=== PATIENT | male | born 1940 | race African-American/Black ===

== ENCOUNTER 2019-03-27 12:04 | Inpatient (IN) | payer OTHER, MEDICAID ==
[~2019-03-27] VITALS: Ht 170.2 cm; Wt 59.0 kg
[2019-03-27 12:04] VITALS: BP_SYST 121
--- NOTE | 2019-03-27 12:04 | NUR ---
Placed in room 02. Placed on monitoring manager, blood pressure machine and pulse oximeter. To gown for exam. Side rails up.
--- NOTE | 2019-03-27 12:08 | NUR ---
Patient brought in by ambulance to the ED c/o fevers and cough for 2 days. Denied any chest pain or shortness of breath. Denied chills, nausea or vomiting. Patient is alert and oriented x2, afebrile, respirations even and unlabored, speaking in full sentences. VSS, pain level 0/10. Informed of approximate wait time. INstructed to notify ED staff for any changes in condition or worsening of symptoms. Patient verbalized understanding.
[2019-03-27] MEDS ORDERED: NACL 0.9% 3,000 ML IV ONE (12:15)
[2019-03-27] MEDS ORDERED: cefTRIAXone 1 GM IVPB PREMIX 50 ML IV ONE (12:15)
--- NOTE | 2019-03-27 12:20 | NUR ---
#18 gauge angiocath placed to R forearm. Use of asceptic technique. Opsite placed over site. Blood return noted. Blood for lab drawn from site. Flushed with 10 cc of normal saline. No evidence of infiltration noted. Patient tolerated well.
--- NOTE | 2019-03-27 12:39 | NUR ---
X-ray tech at bedside as ordered by Dr. Sheth. Patient tolerated the procedure well.
[2019-03-27 12:42] LABS: BASOPHILS % (AUTO) 0.1 % (0.0-2.0); EOSINOPHILS % (AUTO) 0.1 % (0.0-4.0); HEMATOCRIT 28.2 % (36-54); HEMOGLOBIN 9.3 g/dL (14.0-18.0); LYMPHOCYTES # (AUTO) 0.7 K/uL (1.0-5.5); LYMPHOCYTES % (AUTO) 4.3 % (20.5-51.5); MEAN CORPUSCULAR HEMOGLOBIN 26 pg (27-31); MEAN CORPUSCULAR HGB CONC 33 % (32-36); MEAN CORPUSCULAR VOLUME 78 fL (79.0-98.0); MONOCYTES # (AUTO) 1.6 K/uL (0.0-1.0); MONOCYTES % (AUTO) 9.3 % (1.7-9.3); NEUTROPHILS # (AUTO) 14.6 K/uL (1.8-7.7); NEUTROPHILS % (AUTO) 86.2 % (40.0-70.0); PLATELET COUNT (AUTO) 445 K/uL (130-430); RED BLOOD CELL COUNT(AUTO) 3.61 MIL/uL (4.2-6.2); RED CELL DISTRIBUTION WIDTH 18.9 % (9.0-15.0); WHITE BLOOD COUNT (AUTO) 16.9 K/uL (4.8-10.8)
--- NOTE | 2019-03-27 12:42 | NUR ---
#16 FR Wells catheter with use of sterile technique. Immediate return of 10 cc pink, cloudy urine noted. Bedside drainage bag placed below level of bladder. Urine sample collected and sent to lab. Pt tolerated procedure well. Patient arrived with wells in place, changed due to standard of practice prior to admission. Patient unable to toilet self.
[2019-03-27 13:02] LABS: ANION GAP 9 (5-15); CALCIUM 9.8 mg/dL (8.4-11.0); CHLORIDE 99 mmol/L (98-107); CREATININE 0.67 mg/dL (0.55-1.30); GLUCOSE 96 mg/dL (70-99); INR 1.2 (0.80-1.20); POTASSIUM 3.9 mmol/L (3.5-5.1); SODIUM SERUM 135 mmol/L (136-145); UREA NITROGEN, BLOOD 18 mg/dL (8-21)
[2019-03-27 13:08] LABS: ALANINE AMINOTRANSFERASE 26 U/L (12-78); ALBUMIN 2.3 g/dL (3.4-4.8); ASPARTATE AMINOTRANSFERASE 139 U/L (10-37); TOTAL BILIRUBIN 0.3 mg/dL (0.0-1.0)
[2019-03-27] MEDS ORDERED: VANCOMYCIN HCL 1,000 MG in D5W 250 ML IV ONE (13:30)
[2019-03-27] MEDS ORDERED: PIPERACILLIN/TAZO 3.38 GM in D5W 50 ML IV ONE (13:30)
[2019-03-27] MEDS ORDERED: PIPERACILLIN/TAZOBACTAM 3.375 GM/VIAL (ZOSYN) IV ONE (13:49)
[2019-03-27] MEDS ORDERED: VANCOMYCIN HCL 1000 MG/VIAL IV ONE (13:50)
[2019-03-27] MEDS: NACL 0.9% 1,000 ML IV SCH (14:13)
[2019-03-27] MEDS ORDERED: ALBUTEROL SULFATE 0.083% 2.5 MG/3 ML VIAL.NEB INH PRN ×2 (14:15→23:15)
--- NOTE | 2019-03-27 14:15 | NUR ---
Received admitting orders. Called for a bed.
[2019-03-27] MEDS ORDERED: DOCU100T10 GT (14:32)
[2019-03-27] MEDS ORDERED: MULT-27 GT (14:32)
[2019-03-27] MEDS ORDERED: BISA5TAB10 RC (14:32)
[2019-03-27] MEDS ORDERED: ALBU2.5V7 INH (14:32)
[2019-03-27] MEDS ORDERED: GUAI5SYR GT (14:32)
[2019-03-27] MEDS ORDERED: APIX5TAB GT (14:32)
[2019-03-27] MEDS ORDERED: SENN8.6T19 GT (14:32)
[2019-03-27] MEDS ORDERED: PRO40 GT (14:32)
[2019-03-27] MEDS ORDERED: MOM GT (14:32)
[2019-03-27] MEDS ORDERED: HYDR-4272 GT (14:32)
[2019-03-27] MEDS ORDERED: ACET325T53 GT (14:32)
[2019-03-27] MEDS ORDERED: NA P133E41 RC (14:32)
--- NOTE | 2019-03-27 14:33 | NUR ---
Medication reconciliation completed with information provided by medication list from facility. Any prior medication reconciliation on file was reviewed and corrected.
--- NOTE | 2019-03-27 14:44 | NUR ---
Patient will be admitted to care of Dr. Salinas. Admitted to MS unit. Will go to room 111A. Belongings list completed. Complete and up to date summary report printed. SBAR report given to Sherry over the phone with opportunity for questions.
[2019-03-27] MEDS ORDERED: ONDANSETRON HCL 4 MG/2 ML VIAL IVP PRN (14:45)
--- NOTE | 2019-03-27 14:50 | NUR ---
ADMIT NOTE Received pt from ER to the floor with a diagnosis of PNA. Admission process initiated. patient oriented to pain management, safety and call light-teach back done. NEED FOLLOW UP ON TEACH BACK
[2019-03-27 15:05] VITALS: BP_SYST 151
--- NOTE | 2019-03-27 15:08 | NUR ---
[phone]
--- NOTE | 2019-03-27 15:11 | NUR ---
CONSULT PULMONOLOGY PNEUMONIA DR MCINTYRE [phone] S/W [facility] OFFICE
[2019-03-27] MEDS: AZITHROMYCIN 500 MG in NS 250 ML IV SCH (15:45)
[2019-03-27 16:00] VITALS: BP_SYST 151
[2019-03-27 16:08] VITALS: BP_SYST 151
[2019-03-27] MEDS: ACETAMINOPHEN 500 MG TABLET GT PRN (16:45)
[2019-03-27 18:20] VITALS: BP_SYST 151
--- NOTE | 2019-03-27 18:45 | NUR ---
Patient was transfered from ER. Patient is stable, does not answer you questions when you speak to him. His was at bedside and she answered all admin questions. Redd ALLEN
[2019-03-27 20:00] VITALS: BP_SYST 131
--- NOTE | 2019-03-27 20:00 | NUR ---
Complete assessment done. Pt. awake, oriented x 3, quiet and non-cooperative. Keep HOB UP @ 55-65 Degrees Angle and turned/repositioned for comfort.
[2019-03-27] MEDS: PIPERACILLIN/TAZO 4.5GM/DEX-IS 100 ML IV SCH (21:42)
--- NOTE | 2019-03-27 22:00 | NUR ---
Due meds. given @ around this time. Pt. given health teaching on the use and benefits of the antibiotic given.
[2019-03-27] MEDS ORDERED: guaiFENesin/DEXTROMETHORPHAN 118 ML GT PRN (23:15)
[2019-03-27] MEDS ORDERED: ACETAMINOPHEN 325 MG TABLET GT PRN (23:15)
[2019-03-27] MEDS ORDERED: MILK OF MAGNESIA 30 ML UDC GT PRN (23:15)
[2019-03-27] MEDS ORDERED: BISACODYL 5 MG TABLET.DR (DULCOLAX) GT PRN (23:15)
[2019-03-27] MEDS: PANTOPRAZOLE SODIUM 40 MG TAB GT SCH (23:15)
[2019-03-27] MEDS ORDERED: HYDROcodone/ACETAMIN 5-325 MG TAB (NORCO/ VICODIN) GT PRN (23:15)
[2019-03-27] MEDS ORDERED: SODIUM PHOSPHATE,MONO-DIBASIC 133 ML ENEMA RC PRN (23:15)
--- NOTE | 2019-03-27 23:30 | NUR ---
Pt. refused Protonix 40 mg. for G -tube and was fighting/combative to the assigned RN. Pt. non-compliant and refused to be touched and did not want his G-tube to be touched.
[2019-03-27] MEDS: IPRATROPIUM/ALBUTEROL SULFATE 3 ML AMPUL.NEB (DUONEB) INH SCH (23:39)
[2019-03-28] VITALS: BP_SYST 128
--- NOTE | 2019-03-28 00:30 | NUR ---
Pt. is sleeping and HOB UP @ 55-65 degrees angle. Pt. in Room Air. No s/s of RR distress.
[2019-03-28] MEDS: NACL 0.9% 1,000 ML IV SCH ×4 (02:56→21:40)
--- NOTE | 2019-03-28 04:00 | NUR ---
Pt. quiet and sleeping. Denies pain. Noted to have occasional cough @ times. Will follow-up or check cough medication order.
[2019-03-28] MEDS: PANTOPRAZOLE SODIUM 40 MG TAB GT SCH (06:43)
[2019-03-28] MEDS: PIPERACILLIN/TAZO 4.5GM/DEX-IS 100 ML IV SCH ×3 (06:43→21:41)
--- NOTE | 2019-03-28 06:43 | NUR ---
Scheduled med. given Zosyn IV antibiotic. Protonix 40 mg. will be given. Pt. totally awake, provided proper health teachings on the use of Protonix 40 mg. to be given through the G-tube. Continually reenforce pt. so that pt. will not be refusing and will not be combative to the Nurse while the assigned RN will administer it to the G-tube. Pt. able to verbalized understandingas he is fully awakened and said okay and finally cooperated @ this time for Protonix to be given through the G-tube. Pt. able to cooperate and med. was able to be administered before 0700 Am. Pt. verbalized understanding that his med. protects the stomach/GI and prevents bleeding or prevents ulceration.
[2019-03-28] MEDS: IPRATROPIUM/ALBUTEROL SULFATE 3 ML AMPUL.NEB (DUONEB) INH SCH ×3 (07:11→20:10)
--- NOTE | 2019-03-28 07:15 | NUR ---
Gave report to the next Day assigned RN.
[2019-03-28 07:28] LABS: ALANINE AMINOTRANSFERASE 24 U/L (12-78); ALBUMIN 1.9 g/dL (3.4-4.8); ANION GAP 7 (5-15); ASPARTATE AMINOTRANSFERASE 120 U/L (10-37); CALCIUM 9.6 mg/dL (8.4-11.0); CHLORIDE 98 mmol/L (98-107); CREATININE 0.69 mg/dL (0.55-1.30); GLUCOSE 67 mg/dL (70-99); SODIUM SERUM 129 mmol/L (136-145); UREA NITROGEN, BLOOD 15 mg/dL (8-21)
--- NOTE | 2019-03-28 07:30 | NUR ---
Opening note patient resting in bed at this time, A/ox3, nonverbal at this time, able to follow commands and nods to answer question. IV patent, intact, and infusing fluids as ordered. No adverse side effects noted. no infiltration noted. Moy catheter in place, draining yellow urine. on safety and aspiration precautions, HOB kept elevated, bed alarm on, 3 side rails up, call light within reach. patient in stable condition. Will continue to monitor.
[2019-03-28 07:37] LABS: BASOPHILS # (AUTO) 0.1 K/uL (0.0-0.2); BASOPHILS % (AUTO) 0.3 % (0.0-2.0); EOSINOPHILS % (AUTO) 0.1 % (0.0-4.0); HEMATOCRIT 24.1 % (36-54); HEMOGLOBIN 7.9 g/dL (14.0-18.0); LYMPHOCYTES # (AUTO) 0.6 K/uL (1.0-5.5); LYMPHOCYTES % (AUTO) 3.7 % (20.5-51.5); MEAN CORPUSCULAR HEMOGLOBIN 26 pg (27-31); MEAN CORPUSCULAR HGB CONC 33 % (32-36); MEAN CORPUSCULAR VOLUME 78 fL (79.0-98.0); MONOCYTES # (AUTO) 1.5 K/uL (0.0-1.0); MONOCYTES % (AUTO) 8.8 % (1.7-9.3); NEUTROPHILS # (AUTO) 14.6 K/uL (1.8-7.7); NEUTROPHILS % (AUTO) 87.1 % (40.0-70.0); PLATELET COUNT (AUTO) 405 K/uL (130-430); RED BLOOD CELL COUNT(AUTO) 3.07 MIL/uL (4.2-6.2); RED CELL DISTRIBUTION WIDTH 18.7 % (9.0-15.0); WHITE BLOOD COUNT (AUTO) 16.8 K/uL (4.8-10.8)
[2019-03-28 07:48] LABS: TOTAL BILIRUBIN 0.5 mg/dL (0.0-1.0)
[2019-03-28] MEDS ORDERED: guaiFENesin/DEXTROMETHORPHAN 10 ML UDC GT PRN (07:59)
[2019-03-28 08:00] VITALS: BP_SYST 120
--- NOTE | 2019-03-28 09:00 | NUR ---
Gt feeding Gt in place, patent, and intact. Gt feeding tolerating well. no residual noted. No nausea, no vomiting noted.
--- NOTE | 2019-03-28 09:03 | NUR ---
Nutrition Update Krystian Scale 15 noted. Pt admitted for pneumonia. Diet: Jevity 1.5 at 60 ml/hr, Free Water Flush: 200 via GT BMI: 20.4 kg/m2 RD to follow per nutrition care standards.
--- NOTE | 2019-03-28 11:30 | NUR ---
Rounds patient resting in bed at this time, skin care provided. no other needs at this time.
[2019-03-28 11:36] VITALS: BP_SYST 126
--- NOTE | 2019-03-28 13:30 | NUR ---
Bowel movement Patient noted with bowel movement. skin care provided. linens changed, no other needs at this time.
[2019-03-28 15:26] VITALS: BP_SYST 108
--- NOTE | 2019-03-28 15:40 | NUR ---
rounds patient resting in bed at this time, no complaints of pain. Iv patent, intact, and infusing fluids as ordered. No adverse side effects. no infiltration. no other needs at this time.
[2019-03-28] MEDS: AZITHROMYCIN 500 MG in NS 250 ML IV SCH (16:21)
--- NOTE | 2019-03-28 18:00 | NUR ---
New IV site Patient resting in bed at this time. New IV started on left hand gauge 22. Removed old Iv. Noted with bleeding, pressure dressing applied. patient refused to turn to change sheets. Will attempt at a later time.
--- NOTE | 2019-03-28 18:16 | NUR ---
closing note patient resting in bed at this time, A/ox3, nonverbal at this time, able to follow commands and nods to answer question. IV patent, intact, and infusing fluids as ordered. No adverse side effects noted. no infiltration noted. Moy catheter in place, draining yellow urine. on safety and aspiration precautions, HOB kept elevated, bed alarm on, 3 side rails up, call light within reach. patient in stable condition. All needs met.
--- NOTE | 2019-03-28 19:25 | NUR ---
Received report from the day RN. Pt. in bed resting, alert, awake, oriented x 2-3. Pt. in Room Air, no s/s of sob or dyspnea. Pt. calm and quiet. HOB UP @ 65-75 degrees angle. Pt. denies pain. No s/s of cloughing @ this time. Keep pt. safe and apprentice painter hand bed.
--- NOTE | 2019-03-28 19:30 | NUR ---
Pt. with G-tube Feeding of Jevity 1.5 @ 50 mls./hr. continuous. Pt. tolerated the G-tube feeding. No s/s of GI disturbances.
[2019-03-28 20:00] VITALS: BP_SYST 132
--- NOTE | 2019-03-28 20:00 | NUR ---
Assessment done and completed. V/s taken and recorded. Pt. denies pain and refused cough medicine. Pt. agreed that if he's starts to cough he will be given cough medication as the order for cough medication prn is laready @ the System. No s/s of coughing @ this time. Pt. resting calmly, breathing regular and unlabored with lungs sounds throughout diminished to clear. Pt. agreed to call assigned RN. if he starts to cough in the night while sleeping.
[2019-03-28] MEDS: SENNOSIDES 8.6 MG TABLET GT SCH (21:38)
--- NOTE | 2019-03-28 21:38 | NUR ---
Due med. as scheduled given through the G-tube. Zosyn IV antibiotic will be administered - see Emar for the time scanned and will be given. Pt. provided health teaching on the use and benefits of the scheduled meds. ordered to help him. Pt. nodded to show that he understands Nurse health teachings. Pt. compliant and cooperative tonight.
[2019-03-29] MEDS ORDERED: APIXABAN 2.5 MG TABLET PO SCH
[2019-03-29] MEDS ORDERED: APIXABAN 2.5 MG TABLET GT SCH
--- NOTE | 2019-03-29 | NUR ---
Pt. sleeping undisturbed. Turned/repositioned q 2 hrs. as needed with the help of Nsg. staff. Keep pt. clean, dry, safe and dough mixing machine operator bed. HOB up @ 55-65 @ all times to prevent aspiration and G-tube feeding of Jevity continuously running @ 50 mls./hr. IVF of NS @ 50 mls. hr. continuous. Maintained a quiet and dimlighted room environment.
[2019-03-29 01:45] VITALS: BP_SYST 126
--- NOTE | 2019-03-29 04:30 | NUR ---
Pt. given complete bedbath and changed all bed linens, gowns and chux. Pt. IV was accidentally pulled by the pt. 30 minutes ago. TIFFANY Garces restarted PIV site @ the Right Hand G # 22 and continued with the IV of NS @ 50 mls./ hr.
--- NOTE | 2019-03-29 06:00 | NUR ---
Scheduled meds. given @ around this time. Pt. given Cough relief PRN medication for s/s of dry , hard coughing @ this time- see Emar . Turned/repositioned pt. q 2 hrs. as needed. Followed up a new bag of Jevity and changed new feeding tube still running @ 50 mls./hr.
[2019-03-29] MEDS: PANTOPRAZOLE SODIUM 40 MG TAB GT SCH (06:10)
[2019-03-29] MEDS: PIPERACILLIN/TAZO 4.5GM/DEX-IS 100 ML IV SCH ×3 (06:10→22:33)
[2019-03-29 06:35] LABS: ANION GAP 8 (5-15); CALCIUM 9.3 mg/dL (8.4-11.0); CHLORIDE 103 mmol/L (98-107); CREATININE 0.75 mg/dL (0.55-1.30); GLUCOSE 114 mg/dL (70-99); POTASSIUM 3.4 mmol/L (3.5-5.1); SODIUM SERUM 135 mmol/L (136-145); UREA NITROGEN, BLOOD 14 mg/dL (8-21)
[2019-03-29 06:56] LABS: BASOPHILS % (AUTO) 0.2 % (0.0-2.0); EOSINOPHILS % (AUTO) 0.2 % (0.0-4.0); HEMATOCRIT 24.9 % (36-54); LYMPHOCYTES # (AUTO) 0.6 K/uL (1.0-5.5); MEAN CORPUSCULAR HEMOGLOBIN 26 pg (27-31); MEAN CORPUSCULAR HGB CONC 32 % (32-36); MEAN CORPUSCULAR VOLUME 79 fL (79.0-98.0); MONOCYTES % (AUTO) 7.2 % (1.7-9.3); NEUTROPHILS # (AUTO) 12.7 K/uL (1.8-7.7); NEUTROPHILS % (AUTO) 88.4 % (40.0-70.0); PLATELET COUNT (AUTO) 429 K/uL (130-430); RED BLOOD CELL COUNT(AUTO) 3.14 MIL/uL (4.2-6.2); WHITE BLOOD COUNT (AUTO) 14.3 K/uL (4.8-10.8)
--- NOTE | 2019-03-29 07:15 | NUR ---
Gave report to the next day shift assigend RN.
--- NOTE | 2019-03-29 07:30 | NUR ---
OPENING NOTES: RECEIVED PATIENT FROM ROLL SHOP SUPERVISOR NURSE. PATIENT IS AWAKE AND ALERT x3 SITTING UP IN BED. PATIENT DENIES ANY PAIN AT THE MOMENT. PATIENT IS TOLERATING OXYGEN AT ROOM AIR WITH NO SIGNS OF DISTRESS OR SHORTNESS OF BREATH NOTED. IV SITE IS PATENT WITH NO SIGNS OF INFILTRATION NOTED. G-TUBE INTACT WITH CLEAN, DRY DRESSING. SANCHEZ CATHETER INTACT AND DRAINING BY GRAVITY. PATIENT IN STABLE CONDITION. SAFETY, FALL, AND ASPIRATION PRECAUTIONS ARE IN PLACE. BED LOCKED IN LOWEST POSITION WITH CALL LIGHT IN REACH. WILL CONTINUE TO MONITOR PATIENT FOR ANY CHANGES.
[2019-03-29] MEDS: IPRATROPIUM/ALBUTEROL SULFATE 3 ML AMPUL.NEB (DUONEB) INH SCH ×2 (07:52→14:11)
[2019-03-29 08:09] VITALS: BP_SYST 148
[2019-03-29] MEDS: APIXABAN 2.5 MG TABLET GT SCH ×2 (09:32→22:28)
--- NOTE | 2019-03-29 09:40 | NUR ---
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
--- NOTE | 2019-03-29 10:35 | NUR ---
RN ROUNDS: PATIENT IS AWAKE AND ALERT x2 LAYING DOWN IN BED. PATIENT DENIES ANY PAIN AT THE MOMENT. NO SIGNS OF DISTRESS OR SHORTNESS OF BREATH NOTED. PATIENT IN STABLE CONDITION. WILL CONTINUE TO MONITOR PATIENT FOR ANY CHANGES.
--- NOTE | 2019-03-29 12:15 | NUR ---
RN ROUNDS: PATIENT IS AWAKE AND ALERT x2 LAYING DOWN IN BED. NO SIGNS OF DISTRESS OR SHORTNESS OF BREATH NOTED. PATIENT IN STABLE CONDITION. SAFETY, FALL, ASPIRATION AND CONTACT PRECAUTIONS ARE IN PLACE. BED LOCKED IN LOWEST POSITION WITH CALL LIGHT IN REACH. WILL CONTINUE TO MONITOR PATIENT FOR ANY CHANGES.
[2019-03-29] MEDS: ACETAMINOPHEN 500 MG TABLET GT PRN (12:29)
[2019-03-29 12:30] VITALS: BP_SYST 141
[2019-03-29] MEDS: NACL 0.9% 1,000 ML IV SCH (13:49)
[2019-03-29] MEDS ORDERED: POTASSIUM CHLORIDE 20 MEQ/PKT PACKET PO ONE (14:15)
--- NOTE | 2019-03-29 14:30 | NUR ---
RN ROUNDS: PATIENT IS ASLEEP LAYING DOWN IN BED. NO SIGNS OF DISTRESS OR SHORTNESS OF BREATH NOTED. PATIENT IN STABLE CONDITION. WILL CONTINUE TO MONITOR PATIENT FOR ANY CHANGES.
--- NOTE | 2019-03-29 15:55 | NUR ---
Dietitian Recommendations *Continue Jevity 1.5 at 60ml/hr and 200ml free water flush Q6h *Meets 105% upper end of kcal and 103% upper end of protein estimated nutrition needs Please see Nutrition Assessment for further details. LT, RD
[2019-03-29 16:02] VITALS: BP_SYST 129
--- NOTE | 2019-03-29 16:30 | NUR ---
RN ROUNDS: PATIENT IS AWAKE AND ALERT x2 LAYING DOWN IN BED. NO SIGNS OF DISTRESS OR SHORTNESS OF BREATH NOTED. PATIENT IN STABLE CONDITION. WILL CONTINUE TO MONITOR PATIENT FOR ANY CHANGES.
[2019-03-29] MEDS: VANCOMYCIN HCL 750 MG in NS 250 ML IV SCH (16:41)
[2019-03-29] MEDS: AZITHROMYCIN 500 MG in NS 250 ML IV SCH (16:46)
--- NOTE | 2019-03-29 18:28 | NUR ---
CLOSING NOTES: PATIENT IS AWAKE AND ALERT x2 SITTING UP IN BED. PATIENT DENIES ANY PAIN AT THE MOMENT. PATIENT IS TOLERATING OXYGEN AT ROOM AIR WITH NO SIGNS OF DISTRESS OR SHORTNESS OF BREATH NOTED. IV SITE IS PATENT WITH NO SIGNS OF INFILTRATION NOTED. G-TUBE INTACT WITH CLEAN, DRY DRESSING. SANCHEZ CATHETER INTACT AND DRAINING BY GRAVITY. PATIENT IN STABLE CONDITION. SAFETY, FALL, ASPIRATION AND CONTACT PRECAUTIONS REMAINED IN PLACE THROUGHOUT THE SHIFT. BED LOCKED IN LOWEST POSITION WITH CALL LIGHT IN REACH. WILL ENDORSE PATIENT CARE TO ONCOMING LITHOPRESS OPERATOR NURSE.
--- NOTE | 2019-03-29 19:25 | NUR ---
Opening Note Received patient resting in bed, awake and no s/sx of distress, nonlabored breathing. IVF infusing via IV to right hand. G-tube infusing at 60 ml/hr. Moy catheter drainage bag to gravity. Bed is locked in lowest position and call light w/in reach.
[2019-03-29 20:00] VITALS: BP_SYST 115
[2019-03-29] MEDS: MUPIROCIN 2% TOPICAL OINTMENT 22 GM TP SCH (22:32)
[2019-03-29] MEDS: SENNOSIDES 8.6 MG TABLET GT SCH (22:32)
[2019-03-30 02:38] VITALS: BP_SYST 159
[2019-03-30] MEDS: VANCOMYCIN HCL 750 MG in NS 250 ML IV SCH ×2 (03:28→15:02)
--- NOTE | 2019-03-30 03:41 | NUR ---
Antibiotic Due antibiotic, Vanco, given. Infusing well.
--- NOTE | 2019-03-30 03:42 | NUR ---
G-tube feeding G-tube bottle is empty and replaced with new bottle and tubing. Feeding is running as ordered at 60 ml/hr, patient tolerating, no residual noted.
[2019-03-30] MEDS: PANTOPRAZOLE SODIUM 40 MG TAB GT SCH (06:45)
[2019-03-30] MEDS: PIPERACILLIN/TAZO 4.5GM/DEX-IS 100 ML IV SCH ×3 (06:46→21:28)
--- NOTE | 2019-03-30 07:20 | NUR ---
closing note secured IV site, wrapped w/ gauze. due antibiotic given. endorsed report, patient stable.
[2019-03-30] MEDS: IPRATROPIUM/ALBUTEROL SULFATE 3 ML AMPUL.NEB (DUONEB) INH SCH ×2 (07:58→13:49)
[2019-03-30 08:00] VITALS: BP_SYST 140
--- NOTE | 2019-03-30 08:00 | NUR ---
Note Pt resting in bed. GT site intact and patent infusing feedings well at this time. IV in right hand intact and patent infusing IVF's well. No SOB/resp distress or pain noted at this time. Pt on isolation precautions for MRSA in nares. No needs noted. Call light within reach.
[2019-03-30 08:21] LABS: ALANINE AMINOTRANSFERASE 32 U/L (12-78); ALBUMIN 1.9 g/dL (3.4-4.8); ANION GAP 7 (5-15); ASPARTATE AMINOTRANSFERASE 107 U/L (10-37); CALCIUM 9.3 mg/dL (8.4-11.0); CHLORIDE 104 mmol/L (98-107); CREATININE 0.67 mg/dL (0.55-1.30); GLUCOSE 116 mg/dL (70-99); POTASSIUM 3.9 mmol/L (3.5-5.1); SODIUM SERUM 136 mmol/L (136-145); TOTAL BILIRUBIN 0.3 mg/dL (0.0-1.0); UREA NITROGEN, BLOOD 9 mg/dL (8-21)
[2019-03-30] MEDS: MUPIROCIN 2% TOPICAL OINTMENT 22 GM TP SCH ×2 (08:29→21:28)
[2019-03-30] MEDS: APIXABAN 2.5 MG TABLET GT SCH ×2 (08:30→21:30)
[2019-03-30 10:36] VITALS: BP_SYST 140
[2019-03-30 11:31] VITALS: BP_SYST 130
--- NOTE | 2019-03-30 12:00 | NUR ---
Note Pt's family member at bedside at this time. Update on pt's status given. Pt resting comfortably, no needs noted. Call light within reach.
--- NOTE | 2019-03-30 14:35 | NUR ---
Note Pt resting in bed, Breathing treatments being given as scheduled and needed. No needs noted. Call light within reach.
[2019-03-30 15:35] VITALS: BP_SYST 142
--- NOTE | 2019-03-30 15:50 | NUR ---
Note Pt resting in bed - denies any needs at this time. Pt's family member has left the bedside and gone home. Call light within reach. GT feedings infusing well.
[2019-03-30] MEDS: AZITHROMYCIN 500 MG in NS 250 ML IV SCH (17:25)
--- NOTE | 2019-03-30 19:00 | NUR ---
Note Pt resting in bed. No needs noted. Pt was checked on q1' and PRN all shift for needs and care. Pt's Moy catheter intact and patent draining well. IV in right hand intact and patent infusing IVF's well. Pt was maintained with isolation precautions all shift. GT feedings infusing well all shift. Call light within reach.
--- NOTE | 2019-03-30 19:25 | NUR ---
OPENING NOTES Pt and endorsement received from day shift nurse. Pt is resting in bed with both eyes closed, with visible chest rise and fall with non-labored breathing noted. Pt on IVF with NS at 50ml/hr and infusing well on right hand G22. Pt on G-tube feeding with Jevity 1.5 at 60ml/hr and infusing well. Pt on wells catheter with yellow urine noted in the bag and hanged below bladder level. No moaning or grimacing noted. No signs of acute distress or SOB noted. Safety precautions in place with 3 side rails up, wheels locked, bed alarm on and in lowest level. Call light with pt. Will continue to monitor.
[2019-03-30 21:26] VITALS: BP_SYST 145
[2019-03-30] MEDS: SENNOSIDES 8.6 MG TABLET GT SCH (21:27)
[2019-03-30] MEDS: NACL 0.9% 1,000 ML IV SCH (21:29)
--- NOTE | 2019-03-30 21:30 | NUR ---
MED PASS Assessed bowel sounds and is active upon auscultation. Residual is 0. All due meds given and pt tolerated well. Aspiration precaution maintained with head elevated at 45 degrees. No complains of pain and no signs of acute distress noted. Encouraged to use call light when needed. Safety precautions in place and call light with pt. Will continue to monitor.
[2019-03-31 00:08] VITALS: BP_SYST 144
--- NOTE | 2019-03-31 00:45 | NUR ---
ROUNDS Pt is resting in bed with both eyes closed, with visible chest rise and fall with non-labored breathing noted. IVF and G-tube feeding are infusing well. No moaning or grimacing and no signs of acute distress noted. Safety precautions in place and call light with pt. Will continue to monitor.
[2019-03-31] MEDS: VANCOMYCIN HCL 750 MG in NS 250 ML IV SCH ×2 (02:01→14:29)
[2019-03-31] MEDS: IPRATROPIUM/ALBUTEROL SULFATE 3 ML AMPUL.NEB (DUONEB) INH SCH ×3 (02:11→15:50)
--- NOTE | 2019-03-31 03:34 | NUR ---
ROUNDS Pt is resting in bed with both eyes closed, with visible chest rise and fall with non-labored breathing noted. Pt is easily arousable. IVF and G-tube feeding are infusing well. No signs of acute distress or SOB noted. No needs at this time. Safety precautions in place and call light with pt. Will continue to monitor.
[2019-03-31] MEDS: PIPERACILLIN/TAZO 4.5GM/DEX-IS 100 ML IV SCH ×2 (05:01→13:29)
[2019-03-31] MEDS: NACL 0.9% 1,000 ML IV SCH (06:00)
[2019-03-31] MEDS: PANTOPRAZOLE SODIUM 40 MG TAB GT SCH (06:07)
--- NOTE | 2019-03-31 06:18 | NUR ---
CLOSING NOTES Pt is resting in bed with both eyes closed, with visible chest rise and fall with non-labored breathing noted. IVF and G-tube feeding are infusing well. Kept wells bag hanged below bladder level. No complains of pain at this time. No signs of acute distress or SOB noted. All needs attended throughout the shift. Safety precautions maintained with 3 side rails up, wheels locked, bed alarm on and in lowest level. Call light with pt. Will endorse to day shift nurse.
[2019-03-31 08:00] VITALS: BP_SYST 138
--- NOTE | 2019-03-31 08:00 | NUR ---
Note Pt sitting up in bed with HOB at 45'. GT intact and patent infusing feedings well. IV in right hand intact and patent infusing IVF's well. No SOB/resp distress or pain/discomfort was noted a this time. No needs noted at this time. Call light within reach.
[2019-03-31] MEDS: MUPIROCIN 2% TOPICAL OINTMENT 22 GM TP SCH (08:40)
[2019-03-31] MEDS: APIXABAN 2.5 MG TABLET GT SCH (08:41)
--- NOTE | 2019-03-31 10:30 | NUR ---
Note Dr Montgomery on the floor doing rounds at this time. Pt was given partial bed bath and hygiene care by COMMONWEALTH ATTORNEY and RN at this time as well for stool incontinence. No needs noted at this time. Call light within reach.
[2019-03-31 11:28] VITALS: BP_SYST 158
--- NOTE | 2019-03-31 12:25 | NUR ---
Note Pt's called for update on pt's status. Pt's stated that she would be coming in shortly. Pt has no needs at this time. Moy catheter intact and draining well all shift. Call light within reach.
--- NOTE | 2019-03-31 14:56 | NUR ---
DC Planning: Phoned dr. Ching for dc planning order. Informed md that [facility] , given room #215B. The md stated , he spoke with dtr who does not want pt returning back there due to poor nursing care. The md recommended : [facility]. Aleisha to confirm the snf of choice. The md requests RN to call for discharge order once has accepting snf. Addendum: 03/31/19 at 1515 by Jasmin Marquez RN >> Phoned pt. spouse Nikki # [phone], her voice mail was full cm sent SMS per message instruction. ALEISHA called pt's dtr/Tea (Te-[facility]) # [phone]. Stated she is the decision maker if unable to contact her mother. She gave and ok to transfer pt back to [facility] today. Addendum: 03/31/19 at 1527 by Jasmin Marquez RN Confirmed with Cammie/[facility], the patient is accepted. Requesting report now, see RN Liz note. Cammie will call nursing unit if changing bed assignment. >> Call back from [facility]/spouse: stated ok to transfer pt back to [facility] today. >>CM fax updated pt's info/referral package to# [phone] , tel#[phone] attn: Cammie.
[2019-03-31 15:24] VITALS: BP_SYST 148
[2019-03-31 16:23] VITALS: BP_SYST 131
[2019-03-31] MEDS ORDERED: PIPE4.5F2 IV (16:23)
--- NOTE | 2019-03-31 16:33 | NUR ---
>> Booked with Tiburcio at [facility] # [phone], BLS transfer, rock picker time at 7 pm. -- TIFFANY Hill made aware.
[2019-03-31] MEDS: AZITHROMYCIN 500 MG in NS 250 ML IV SCH (16:42)
--- NOTE | 2019-03-31 18:00 | NUR ---
Note Report was given to Ronnie ALLEN at [facility] at 1630. Pt's (Jayden) was called and notified of transfer at 1900 back to [facility]. Pt was checked on q1'a and PRN all shift for needs and care. IVF's wer saline locked and GT feedings were stopped at this time. Pt dressed in orange gown and sheet at this time. Discharge packed ready at nurses' station for pickup. Call light within reach.
--- NOTE | 2019-03-31 18:50 | NUR ---
Note Pt IV was wrapped in Kerlix wrap for IVPB antibiotics for another additional 5 days. Pt's GT was clamped and dressing around site CDI at this time. No needs noted. Call light within reach.
--- NOTE | 2019-03-31 19:19 | NUR ---
[facility] called, s/w Jose, he said the crew is coming late and they will be here in 30 minutes.
--- NOTE | 2019-03-31 20:20 | NUR ---
[facility] here to sheepskin pickler pt. Pt DC back to [facility]. Pt alert, awake, stable condition. IV lock R. hand secured with Kerlix. Moy catheter draining to gravity. GT clamped.
[2019-04-01] MEDS ORDERED: VANCOMYCIN HCL 1,000 MG in NS 250 ML IV SCH (03:00)
== END 2019-03-31 20:20 | DRG 871 ==
LOC: SED 12:04 → SMU 14:13
PROVIDERS: ADMIT Family Medicine; ATTEND Family Medicine
DX: A41.9 Sepsis, unspecified organism (principal); J18.9 Pneumonia, unspecified organism; I82.402 Acute embolism and thrombosis of unspecified deep veins of left lower extremity; C61 Malignant neoplasm of prostate; G89.4 Chronic pain syndrome; D64.9 Anemia, unspecified; K59.09 Other constipation; F03.90 Unspecified dementia, unspecified severity, without behavioral disturbance, psychotic disturbance, mood disturbance, and anxiety; Z93.1 Gastrostomy status; Z86.718 Personal history of other venous thrombosis and embolism; Z85.46 Personal history of malignant neoplasm of prostate; Z78.9 Other specified health status; Z87.81 Personal history of (healed) traumatic fracture; Z79.899 Other long term (current) drug therapy
CPT/HCPCS: 36415; 71045; 80048; 80053; 80202-TC; 83605; 84484; 85025; 85610-TC; 85730-TC; 86710; 87040-TC; 87081; 93005; 94010; 94640; 94760; 96365; 96366; 96367; 99285; J0456; J0696; J2543; J3370; J7030; J7050; J7613